=== PATIENT | male | born 1960 | race Caucasian/White ===

== ENCOUNTER → 2021-06-21 03:47 | Outpatient (CLI) | payer OTHER, SELFPAY ==
[2021-06-21 18:53] LABS: SARS-CoV-2 RNA PCR Negative
== END ==
PROVIDERS: PCP Family Medicine; Visit Provider Surgery
DX: Z01.812 Encounter for preprocedural laboratory examination (principal); Z20.822 Contact with and (suspected) exposure to COVID-19
CPT/HCPCS: C9803; U0003; U0005

== ENCOUNTER 2021-06-21 08:50 | Outpatient (CLI) | payer OTHER, SELFPAY ==
--- NOTE | 2021-06-21 09:00 | ECG_ITS ---
Measurements Intervals [place] Rate: 61 P: 16 AL: 185 QRS: -20 QRSD: 94 T: -5 QT: 377 QTc: 382 Interpretive Statements SINUS RHYTHM BORDERLINE T WAVE ABNORMALITY- INFERIOR LEADS BASELINE ARTIFACT- I, II, III, AVR, AVL, AVF BORDERLINE ECG Electronically Signed On 06-21-2021 10:29:27 CDT by Kiko Melendez D.O.
== END 2021-06-21 08:51 | disposition home or self-care (01) ==
PROVIDERS: PCP Family Medicine; Visit Provider Surgery
DX: Z01.818 Encounter for other preprocedural examination (principal); K42.9 Umbilical hernia without obstruction or gangrene; I10 Essential (primary) hypertension
CPT/HCPCS: 36415; 86850; 86900; 86901; 93005

== ENCOUNTER 2021-06-26 03:38 | Day surgery (SDC) | payer OTHER, SELFPAY ==
[2021-06-20 09:01] VITALS: BMI 32.2
--- NOTE | 2021-06-21 12:40 | WPDANESEPPF ---
Anes - Initial Pre Proc Eval Procedure: Operation Date: 06/24/21 13:00 Proposed Procedures p Laparoscopic Umbilical Hernia Repair with Mesh - Nithin Germain MD Date/Time: 06/21/21 12:40 Surgeon: Nithin Germain MD Pre Op Diagnosis: umbilical hernia Patient Data Age: 60 Gender: M Height: 1.78 m Weight: 102 kg Allergies Allergy/AdvReac Type Severity Reaction Status Date / Time thiopental Allergy Mild difficulty Verified 06/26/21 12:48 waking up from surgery Home Medications Medication Instructions Recorded Confirmed Type sildenafil 100 mg tablet 100 mg PO DAILY PRN #10 tablet 05/20/21 06/26/21 Rx amlodipine 5 mg tablet 5 mg PO DAILY #30 tablet 06/17/21 06/26/21 Rx gabapentin 800 mg PO TID 06/20/21 06/26/21 History meloxicam 15 mg PO DAILY 06/20/21 06/26/21 History Patient hx anesthesia problems: none Family hx anesthesia problems: none PMFSH Past Medical History Medical History BMI 31.0-31.9,adult Cataracts, bilateral Erectile dysfunction Neuropathy feet Seasonal allergies Tinea cruris Umbilical hernia Surgical History Surgical History History of surgery on arm Repair L arm fx Hx of nephrolithotomy with removal of calculi Family History Family History Father , Age 82 Testicular cancer Pancreatic cancer Mother Hypertension Other Family history of malignant neoplasm of breast Family history of malignant neoplasm of testis Social History Social History Smoking packs per day: 1 Smoking cigarettes per day: 20.0 Years smoked: 4 Smoking pack-years: 4.00 Tobacco type: cigarettes Second hand tobacco smoke exposure: No Alcohol intake: current Alcohol use details: 1 PER MONTH Substance use: former Living arrangements: with family Additional occupation/education comments: Tech Support Anes - Eval Final PreProcedure Day of Procedure 06/21/21 12:40 Patient weight: obese Heart: regular rate and rhythm Lungs: clear to auscultation Airway: Mallampati scale class III Neurological: alert and oriented Last oral intake: >/= 8 hours ASA classification: III Emergent: no Anesthetic plan: proceed Anesthesia type and monitoring: general ETT and standard monitoring Informed Consent: The patient's anesthetic plan and its attendant risks and benefits were discussed with the patient/family/POA. Questions were solicited and answers provided to the satisfaction of the patient/family/POA.
[2021-06-26] VITALS (9 sets, daily range): BP systolic 110–140; BP diastolic 70–86; PULSE 55–70; RESP 12–18; TEMP 36.7–36.8; O2SAT 95–100
[2021-06-26] MEDS: LACTATED RINGERS 1,000 ML 30 ML IV CONT ×2 (12:30→12:35)
[2021-06-26] MEDS: ACETAMINOPHEN 500 MG TABLET 1000 MG PO (12:41)
[2021-06-26] MEDS: KETOROLAC 15 MG/ML VIAL (*BKC) IV PUSH (12:41)
--- NOTE | 2021-06-26 14:33 | WPDHPUPDATE1 ---
History and Physical Update Update Date/Time: 06/26/21 14:33 History and Physical has been reviewed, including an updated exam of the patient. There are NO changes in the patient's condition. Risks, benefits, and alternativesOf a laparoscopic umbilical hernia repair with mesh possible open have been discussed and questions answered. Patient agrees to proceed with procedure.
[2021-06-26] MEDS: ceFAZolin 2 GM/D5W 50 ML 2 GM/50 ML BAG IVPB (14:40)
[2021-06-26] MEDS: BUPIVACAINE/EPINEPHRINE 0.5% 10 ML VIAL 30 ML INFILTRATE (15:41)
--- NOTE | 2021-06-26 16:09 | W.PM.PROC2 ---
Procedure Note - Detailed Date of Procedure 06/26/21 Pre-op Diagnosis umbilical hernia without incarceration Post-op Diagnosis same Procedure Performed Laparoscopic umbilical hernia repair with mesh Surgeon Nithin Germain MD Senior [employer] Specialist [place], [place] senior office assistant Anesthesia general Indications Patient has a palpable defect at the umbilicus and complaints of periodic abdominal pain especially with increased activity. Findings Small, approximately 11 mm fascial defect, underlying the umbilicus. Description of Procedure DESCRIPTION OF PROCEDURE: The patient was placed in the supine position on the operative table and after induction of adequate general endotracheal anesthesia by José Miguel Anesthesia, the entire abdomen was prepped and draped in usual sterile fashion and the head placed slightly up. An Ioban drape was used to prevent contact of the mesh with the skin during this clean case. Following this, local anesthetic was placed and a spot selected about two fingerbreadths below the costal margin on the left and a small incision made after instilling local anesthetic using 0.25% Marcaine with epinephrine. Following this, a Veress needle technique using the water drop test was completed. Using 2 towel clips on the skin, I carefully elevated the skin and then passed the Veress needle into the abdomen and we could see that the saline droped through the Veress needle easily. CO2 gas was connected and the abdomen was insufflated to 14 mm Hg pressure. Following this, the 0 degree 5 mm laparoscope was placed inside a 5 mm trocar, which was carefully twisted into the abdomen without difficulty, seeing a open pneumoperitoneum as we entered. Thus, the trocar was removed, the sleeve confirmed to be nicely within the abdomen, and we carefully inspected the anterior abdomen. Careful inspection of the abdomen revealed no inguinal hernias. A small defect in the umbilicus that was actually difficult to see initially, but after placing a 12 mm port in the left lower quadrant under direct vision with the laparoscope, we could see up into a 11 mm defect that had been measured then with an instrument with a known cm marker. There was no incarceration of any omentum or any other adhesions to the underside of the umbilicus. Following this, we carefully planned by measuring the defect. Our mesh, a circular 11 cm piece of Venta-lite mesh was chosen, so that we would have 4.5 cm of overlap in all directions over the circular umbilical defect. Following this, the ventra-lite balloon hernia system mesh was rolled and this was inserted through the LLQ 12 mm port after rolling it to protect the absorbable covering on the downside of the mesh. A black silk suture was placed through the blue system loop that is used to extract the tubing for the balloon positioning system such that I could grab this and pull it up through the umbilical area with the suture Passer. I used the suture passer after making a small opening with an 11 blade knife after placing local anesthetic directly in the center of the umbilicus. The suture passer was used to grasp this centering silk stitch on the piece of mesh, and this was pulled up, centering it. For this case as I did this the tubing on the system broke right where there is a yellow connector. This was stuck to the underside of the abdominal wall at the umbilicus and in the umbilical hernia sac and a short piece of the blue tubing system came off when we tried to extract it. Therefore had to work a little bit more at this site we made decision a little bit bigger I was able to use a grasper from the inside and a mosquito from the outside to grass the end of the tubing for the balloon positioning system and finally put up pull it up in out through that incision. A small amount of the tissue of the umbilical hernia sac which was pulled out during this process was sent for pathology. Once this was out since we could use a balloo
[2021-06-26] MEDS: oxyCODONE HCL (*CRX) 5 MG TAB IR PO (17:52)
== END 2021-06-26 18:00 | disposition home or self-care (01) ==
PROVIDERS: PCP Family Medicine; Visit Provider Surgery
PROC: (CPT 49652; principal; 2021-06-26 14:00)
DX: K42.9 Umbilical hernia without obstruction or gangrene (principal); G62.9 Polyneuropathy, unspecified; N52.9 Male erectile dysfunction, unspecified; F17.210 Nicotine dependence, cigarettes, uncomplicated; E66.9 Obesity, unspecified; Z68.31 Body mass index [BMI] 31.0-31.9, adult
CPT/HCPCS: 49652; 36415; 86850; 86900; 86901; 88302; 93005; A9270; C1781; C9803; J0690; J1100; J1885; J2250; J2405; J2704; J2710; J3010; J7120; U0003; U0005

== ENCOUNTER 2021-06-26 12:45 | Outpatient (CLI) | payer OTHER, SELFPAY ==
[2021-06-26 12:06] LABS: EDCOVIDSCREEN Negative (Negative)
== END 2021-06-26 12:46 | disposition home or self-care (01) ==
LOC: ANHSURGERY 08-02 12:45
PROVIDERS: PCP Family Medicine; Visit Provider Surgery
DX: Z01.812 Encounter for preprocedural laboratory examination (principal); Z20.822 Contact with and (suspected) exposure to COVID-19
CPT/HCPCS: 87426; C9803

== ENCOUNTER 2021-11-21 07:34 | Outpatient (CLI) | payer OTHER, SELFPAY ==
--- NOTE | 2021-11-21 07:41 | ECHO_ITS ---
Patient Info Name: New Naylor Age: 61 years : 1960 Gender: Male Ht: 70 in Wt: 220 lbs BSA: 2.25 m2 HR: 64 bpm BP: 142 / 89 mmHg Technical Quality: Good Exam Date: 11/21/2021 7:55 AM Exam Location: [facility] [place] Patient Status: Outpatient Admit Date: 11/21/2021 Staff Ordering Physician: Tomasa Duran NP Sampler Ovens: Carola Montoya RDCS Attending Provider: Tomasa Duran NP Referring Physician: Roger HILLIARD; Exam Type: CA echo doppler color flow Study Info Indications G47.33 - OSTRUCTIVE SLEEP APNEA Complete two-dimensional, color flow and Doppler transthoracic echocardiogram is performed. Summary 1. Complete two-dimensional, color flow and Doppler transthoracic echocardiogram is performed. 2. Left ventricular chamber dimension is normal. 3. Left ventricular systolic function is normal, estimated at 55-60%. 4. The left ventricular diastolic function is grade I diastolic dysfunction. 5. E/e' 7 is not elevated. 6. Global longitudinal strain is normal at -17.1%. 7. There is mild aortic valve sclerosis. 8. There is trace mitral valve regurgitation. 9. No pulmonary hypertension, estimated pulmonary arterial systolic pressure is 27 mmHg. Left Ventricle E/e' 7 is not elevated. Global longitudinal strain is normal at -17.1%. Left ventricular chamber dimension is normal. Left ventricular systolic function is normal, estimated at 55-60%. The left ventricular diastolic function is grade I diastolic dysfunction. Right Ventricle Right ventricular systolic function is normal and with normal TAPSE 2.6 cm. Right ventricular chamber dimension is normal. Left Atria Left atrial chamber dimension is normal. Right Atria Right atrial chamber dimension is normal. Aortic Valve The aortic valve is trileaflet. There is mild aortic valve sclerosis. There is no aortic valve stenosis. There is no aortic valve regurgitation. Pulmonic Valve There is no pulmonic regurgitation. Mitral Valve There is no mitral valve stenosis. There is trace mitral valve regurgitation. Tricuspid Valve There is no tricuspid valve regurgitation. No pulmonary hypertension, estimated pulmonary arterial systolic pressure is 27 mmHg. Pericardium/Pleural There is no pericardial effusion. Inferior Vena Cava Normal inferior vena cava with >50% collapse upon inspiration consistent with normal right atrial pressure, 5 mmHg. Aorta The aortic root size at the sinus of Valsalva is normal. Left Ventricular Outflow Tract Name Value Normal LVOT 2D LVOT Diameter 2.0 cm LVOT Doppler LVOT Peak Gradient 5 mmHg LVOT Mean Gradient 3 mmHg LVOT VTI 25 cm LVOT VTI/AV VTI Ratio 0.8 LVOT Stroke Volume 82 ml LVOT CO 5.0 l/min LVOT CI 2.2 l/min/m2 Pulmonic Valve Name Value Norm
== END 2021-11-21 07:35 | disposition home or self-care (01) ==
PROVIDERS: PCP Family Medicine; Visit Provider Nurse Practitioner Family
DX: G47.33 Obstructive sleep apnea (adult) (pediatric) (principal); E78.2 Mixed hyperlipidemia; I10 Essential (primary) hypertension; R07.89 Other chest pain; I70.0 Atherosclerosis of aorta
CPT/HCPCS: 93306

== ENCOUNTER 2022-07-07 12:29 | Emergency (ER) | payer OTHER, SELFPAY ==
[2022-07-07 12:34] VITALS: BP 150/85; PULSE 81; RESP 87; O2SAT 98
[2022-07-07] MEDS: methylPREDNISolone SOD SUCC 125 MG VIAL IV PUSH (12:48)
[2022-07-07] MEDS: diphenhydrAMINE HCl INJ 50 MG/ML VIAL IV PUSH (12:48)
[2022-07-07] MEDS: SODIUM CHLORIDE 0.9% IV 1,000 ML 999 ML IV CONT (12:49)
[2022-07-07] MEDS: EPINEPHrine HCL INJ 1 MG/ML AMPUL 0.3 MG SUB-Q (12:49)
[2022-07-07] MEDS: FAMOTIDINE 20 MG/2 ML VIAL IV PUSH (12:54)
--- NOTE | 2022-07-07 12:54 | ED.ALLEREA ---
HPI - Allergic Reaction General Chief complaint: Allergic Reaction Stated complaint: stung by hornets Time Seen by Provider: 07/07/22 12:36 History of Present Illness HPI narrative: 61-year-old male presents the emergency room for evaluation of multiple hornet stings. Patient he was outside mowing his lawn earlier today when he accidentally mowed over hornet nest. Reports being stung multiple times around the chest back arms and face. Patient states he took 50 of Benadryl about an hour prior to arrival. Does complain of mild shortness of breath. Related Data Allergies Allergy/AdvReac Type Severity Reaction Status Date / Time thiopental Allergy Mild difficulty Verified 11/07/21 09:08 waking up from surgery Review of Systems Review of Systems: CONSTITUTIONAL: Denies fever, chills, or sweats. EYES: Denies visual changes, redness, or discharge. ENT: Denies rhinorrhea, congestion, sore throat, or otalgia. CARDIOVASCULAR: Denies chest pain, palpitations, or edema. RESPIRATORY: Reports dyspnea GASTROINTESTINAL: Denies abdominal pain, nausea, vomiting, or diarrhea. GENITOURINARY: Denies dysuria or hematuria. SKIN: Reports urticaria to chest and back MUSCULOSKELETAL: Denies back pain, joint pain, or myalgia. NEUROLOGIC: Denies headache, numbness, dizziness, or weakness. PSYCHIATRIC: Denies anxiety or depression. [facility] Past Medical History Medical History BMI 31.0-31.9,adult Cataracts, bilateral Erectile dysfunction Neuropathy feet Osteoarthrosis, hand Seasonal allergies Tinea cruris Umbilical hernia Surgical History Surgical History H/O umbilical hernia repair 06/24/21 lap umbilical hernia repair with mesh History of surgery on arm Repair L arm fx Hx of nephrolithotomy with removal of calculi Family History Family History Father , Age 82 Testicular cancer Pancreatic cancer Mother Hypertension Other Family history of malignant neoplasm of breast Family history of malignant neoplasm of testis Social History Social History Smoking packs per day: 1 Smoking cigarettes per day: 20.0 Years smoked: 4 Smoking pack-years: 4.00 Tobacco type: cigarettes Second hand tobacco smoke exposure: No Alcohol intake: current Alcohol use details: 1 PER MONTH Substance use: former Additional occupation/education comments: Tech Support Exam Narrative: GENERAL: Well-appearing, well-nourished, no physical limitations, and in no acute distress. HEAD: Normocephalic, atraumatic. EYES: Conjunctivae normal, PERRLA and EOMI. ENT: External nose normal, Nares clear, no rhinorrhea or epistaxis. Mucous membranes moist. Oropharynx without tonsillar hypertrophy exudate or other lesions. External ears normal, bilateral TMs normal bilaterally NECK: Supple. CHEST: Clear to auscultation. No respiratory distress. HEART: Regular rate and rhythm. No murmur heard. Normal peripheral pulses. BACK: No CVA tenderness; No cervical/thoracic/lumbar tenderness, step-offs, bony abnormality; FROM EXTREMITIES: Normal range of motion. No edema. No clubbing or cyanosis SKIN: Urticaria noted to anterior posterior torso, upper extremities, and face NEURO: No focal deficits. Alert and oriented x3. MAEW. CN's II-XI intact bilaterally, normal gait PSYCH: Cooperative. Normal mood and affect. Course Vital Signs Vital signs: Vital Signs Pulse Rate 81 07/07/22 12:34 Respiratory Rate 87 H 07/07/22 12:34 Blood Pressure 150/85 H 07/07/22 12:34 Pulse Oximetry 98 07/07/22 12:34 Oxygen Delivery Room Air 07/07/22 12:34 Pulse Rate 81 07/07/22 12:34 Respiratory Rate 87 H 07/07/22 12:34 Blood Pressure 150/85 H 07/07/22 12:34 Pulse Oximetry 98 07/07/22 12:34 Oxygen Deliv
== END 2022-07-07 14:55 | disposition home or self-care (01) ==
PROVIDERS: Emergency Provider Nurse Practitioner Family; PCP Family Medicine
DX: T63.451A Toxic effect of venom of hornets, accidental (unintentional), initial encounter (principal); F17.210 Nicotine dependence, cigarettes, uncomplicated
CPT/HCPCS: 96361; 96372; 96374; 96375; 99284; J0171; J1200; J2930; J7030

== ENCOUNTER 2025-04-11 09:30 | Outpatient (CLI) | payer MEDICARE, SELFPAY ==
[2025-04-11 10:06] LABS: Basophils Percent Auto 0.2 % (0.2-1.2); Eosinophils Absolute Auto 0.1 K/mm3 (0-0.3); Eosinophils Percent Auto 2.5 % (0-4.4); Hematocrit 44.8 % (42.0-52.0); Immature Granulocyte Absolute 0.01 K/mm3 (0.00-0.031); Immature Granulocyte Percent A 0.2 % (0-0.5); Lymphocytes Absolute Auto 1.14 K/mm3 (0.9-3.2); Lymphocytes Percent Auto 28.4 % (18.3-44.2); Mean Corpuscular HGB Conc 33.5 g/dl (32-36); Mean Corpuscular Hemoglobin 29.6 pg (26-34); Mean Corpuscular Volume 88.4 fl (80-100); Monocytes Absolute Auto 0.5 K/mm3 (0.1-0.6); Monocytes Percent Auto 12.5 % (2.6-8.5); Neutrophils Absolute Auto 2.3 K/mm3 (1.3-6.7); Neutrophils Percent Auto 56.2 % (45.5-73.1); Platelet Count Result 232 k/mm3 (150-375); Red Blood Count 5.07 M/mm3 (4.6-6.20)
[2025-04-11 10:08] LABS: Alanine Aminotransferase 30 U/L (6-50); Albumin Level 4.7 g/dL (3.5-5.1); Alkaline Phosphatase 49 U/L (38-126); Anion Gap 8 mmol/L (4-12); Aspartate Amino Transferase 39 U/L (17-59); Bilirubin,Total 0.7 mg/dL (0.2-1.3); Blood Urea Nitrogen 20 mg/dL (9-20); Calcium 9.3 mg/dL (8.4-10.2); Carbon Dioxide 26 mmol/L (22-30); Chloride 105 mmol/L (98-107); Cholesterol 224 mg/dL (0-200); Estimated Glomerular Filt Rate > 60; Glucose 102 mg/dL (65-110); HDL Direct 35 mg/dL; Potassium 4.5 mmol/L (3.4-5.0); Sodium 139 mmol/L (137-145); Triglycerides 124 mg/dL (<150)
[2025-04-11 10:19] LABS: LDL Cholesterol Direct 137 mg/dL
[2025-04-11 10:25] LABS: Vitamin D 25 Hydroxy 25.4 ng/mL
[2025-04-11 10:39] LABS: Prostate Specific Antigen 1.2 ng/mL (< OR = 4.0)
[2025-04-13 19:58] LABS: Estrogen 134 pg/mL (< OR = 404)
[2025-04-14 13:28] LABS: Testosterone Free 78.9 pg/mL (35.0-155.0); Testosterone Total 489 ng/dL (250-1100)
== END 2025-04-11 09:31 | disposition home or self-care (01) ==
PROVIDERS: PCP Family Medicine; Visit Provider Physician Assistant Medical
DX: R79.89 Other specified abnormal findings of blood chemistry (principal); G62.9 Polyneuropathy, unspecified; E55.9 Vitamin D deficiency, unspecified; I10 Essential (primary) hypertension; E78.2 Mixed hyperlipidemia; Z12.5 Encounter for screening for malignant neoplasm of prostate
CPT/HCPCS: 36415; 80053; 80061; 82306; 82607; 82672; 84153; 84402; 84403; 85025; G0103